=== PATIENT | male | born 1975 | race American Indian/Alaskan Native ===

== ENCOUNTER 2017-05-03 22:04 | Emergency (ER) | payer MEDICAID | END 2017-05-03 23:55 | disposition left against medical advice (07) | LOC: ED 22:04 | DX: K08.89 Other specified disorders of teeth and supporting structures (principal); Z53.21 Procedure and treatment not carried out due to patient leaving prior to being seen by health care provider ==

== ENCOUNTER 2018-09-14 17:06 | Emergency (ER) | payer MEDICAID ==
[2018-09-14 17:43] VITALS: BP 153/105
--- NOTE | 2018-09-14 20:01 | Emergency Department Report ---
ED General Adult HPI - General Chief complaint: Pain General Stated complaint: GOUT FLARE UP Time Seen by Provider: 09/14/18 19:24 Source: patient Mode of arrival: Ambulatory Limitations: No Limitations - History of Present Illness Initial comments: 43-year-old -Citizen Of [place] male with past medical history of recurrent gouty arthritis in his right arm/wrist and right foot and ankle region presents to the emergency department complaining of another flareup. Flareup started 1 day ago and has been progressively worsening since onset patient is Rath his home meds commences gadolinium, which is the cause of this flareup reports no trauma and denies any fever, chills, sweats. Pain is worse with palpation and ambulation -: Gradual Radiation: non-radiation Severity scale (0 -10): 10 Quality: aching Consistency: constant Improves with: none Associated Symptoms: denies: confusion, fever/chills, headaches, loss of appetite, nausea/vomiting, seizure, shortness of breath, syncope, weakness - Related Data Previous Rx's Medication Instructions Recorded Last Taken Type HYDROcodone/APAP 5-325 [[place] 1 each PO Q6HR PRN #15 tablet 08/04/16 Unknown Rx 5/325] Ibuprofen [Motrin] 600 mg PO Q8H PRN #25 tablet 08/04/16 Unknown Rx predniSONE [Deltasone] 40 mg PO QDAY #10 tab 08/04/16 Unknown Rx Colchicine 0.6 mg PO QDAY #30 capsule 07/13/18 Unknown Rx HYDROcodone/APAP 5-325 [[place] 1 - 2 each PO Q6HR PRN #14 tablet 07/13/18 Unknown Rx 5/325] Prednisone [predniSONE 10 mg 10 mg PO .TAPER #1 tab.ds.pk 07/13/18 Unknown Rx (6-Day Pack, 21 Tabs)] amLODIPine [Norvasc] 5 mg PO DAILY #90 tab 07/13/18 Unknown Rx Colchicine 0.6 mg PO Q2HR #10 capsule 09/14/18 Unknown Rx predniSONE [Deltasone] 50 mg PO QDAY #5 tab 09/14/18 Unknown Rx traMADol [Ultram] 50 mg PO Q6HR PRN #20 tablet 09/14/18 Unknown Rx Allergies Allergy/AdvReac Type Severity Reaction Status Date / Time No Known Allergies Allergy Unverified 08/03/16 22:28 ED Review of Systems ROS: Stated complaint: GOUT FLARE UP Other details as noted in HPI Constitutional: denies: chills, fever Eyes: denies: eye pain, eye discharge, vision change ENT: denies: ear pain, throat pain Respiratory: denies: cough, shortness of breath, wheezing Cardiovascular: denies: chest pain, palpitations Endocrine: no symptoms reported Gastrointestinal: denies: abdominal pain, nausea, diarrhea Genitourinary: denies: urgency, dysuria Musculoskeletal: joint swelling, arthralgia. denies: back pain Skin: denies: rash, lesions Neurological: denies: headache, weakness, paresthesias Psychiatric: denies: anxiety, depression Hematological/Lymphatic: denies: easy bleeding, easy bruising ED Past Medical Hx - Past Medical History Previous Medical History?: Yes Hx Hypertension: Yes Hx Sickle Cell Disease: Yes Additional medical history: Gout - Surgical History Past Surgical History?: No - Social History Smoking Status: Never Smoker Substance Use Type: None - Medications Home Medications: Home Medications Medication Instructions Recorded Confirmed Last Taken Type HYDROcodone/APAP 5-325 [[place] 1 each PO Q6HR PRN #15 tablet 08/04/16 Unknown Rx 5/325] Ibuprofen [Motrin] 600 mg PO Q8H PRN #25 tablet 08/04/16 Unknown Rx predniSONE [Deltasone] 40 mg PO QDAY #10 tab 08/04/16 Unknown Rx Colchicine 0.6 mg PO QDAY #30 capsule 07/13/18 Unknown Rx HYDROcodone/APAP 5-325 [[place] 1 - 2 each PO Q6HR PRN #14 tablet 07/13/18 Unknown Rx 5/325] Prednisone [predniSONE 10 mg 10 mg PO .TAPER #1 tab.ds.pk 07/13/18 Unknown Rx (6-Day Pack, 21 Tabs)] amLODIPine [Norvasc] 5 mg PO DAILY #90 tab 07/13/18 Unknown Rx Colchicine 0.6 mg PO Q2HR #10 capsule 09/14/18 Unknown Rx predniSONE [Deltasone] 50 mg PO QDAY #5 tab 09/14/18 Unknown Rx traMADol [Ultram] 50 mg PO Q6HR PRN #20 tablet 09/14/18 Unknown Rx ED Physical Exam - General Limitations: No Limitations General appearance: alert, in no apparent distress - Head Head exam: Present: atraumatic, normocephalic - Eye Eye exam: Present: normal appearance, PERRL, EOMI Pupils: Present: normal accommodation - ENT ENT exam: Present: normal exam, mucous membranes moist, TM's normal bilaterally - Neck Neck exam: Present: normal inspection, full ROM. Absent: lymphadenopathy - Respiratory Respiratory exam: Present: normal lung sounds bilaterally. Absent: respiratory distress - Cardiovascular Cardiovascular Exam: Present: regular rate, normal rhythm. Absent: systolic murmur, diastolic murmur, rubs, gallop - GI/Abdominal GI/Abdominal exam: Present: soft, normal bowel sounds - Rectal Rectal exam: Present: deferred - Extremities Exam Extremities exam: Present: normal inspection, full ROM, tenderness, normal capillary refill, joint swelling, other (no Homans sign. There is pain to the dorsum of the right wrist with some mild swelling. Pain with palpation and range of motion. Capillary refills are brisk. Right foot and ankle is tenderness to the lateral malleolus region. The joint is stable). Absent: pedal edema, calf tenderness - Back Exam Back exam: Present: normal inspection, full ROM, rash noted. Absent: CVA tenderness (R), CVA tenderness (L), muscle spasm, paraspinal tenderness, vertebral tenderness - Neurological Exam Neurological exam: Present: alert, oriented X3, CN II-XII intact, normal gait - Psychiatric Psychiatric exam: Present: normal affect, normal mood. Absent: anxious, flat affect, manic, suicidal ideation - Skin Skin exam: Present: warm, dry, intact, normal color. Absent: rash, erythema, urticaria, pallor, abrasion, ecchymosis ED Course Vital Signs 09/14/18 17:40 Temperature 99.5 F Pulse Rate 102 H Respiratory 18 Rate Blood Pressure 153/105 O2 Sat by Pulse 97 Oximetry Critical care attestation.: If time is entered above; I have spent that time in minutes in the direct care of this critically ill patient, excluding procedure time. ED Disposition Clinical Impression: Gout flare Disposition: - TO HOME OR SELFCARE Is pt being admited?: No Does the pt Need Aspirin: No Condition: Stable Instructions: Acute Gouty Arthritis (ED) Referrals: PRIMARY CARE, [Primary Care Provider] - 3-5 Days [facility] [Provider Group] - 3-5 Days
[2018-09-14] MEDS ORDERED: TORADOL IM STA (20:02)
[2018-09-14] MEDS ORDERED: SOLU-Medrol IM ONE (20:57)
== END 2018-09-14 21:07 | disposition home or self-care (01) ==
LOC: ED 17:06
DX: M10.9 Gout, unspecified (principal); I10 Essential (primary) hypertension; D57.1 Sickle-cell disease without crisis; Z79.899 Other long term (current) drug therapy
CPT/HCPCS: 96372; 99282; J1885; J2930

== ENCOUNTER 2021-12-22 20:30 | Emergency (ER) | payer MEDICAID ==
[2021-12-22 21:19] VITALS: BP 145/93
[2021-12-23] MEDS ORDERED: HYDROcodone/ACETAMINOPHEN 7.5-325MG TAB PO ONE (00:47)
[2021-12-23] MEDS ORDERED: methylPREDNISolone Sod Succinate 125 MG/2 ML INJ IM ONE (00:47)
[2021-12-23] MEDS ORDERED: KETOROLAC 30 MG/1 ML INJ IM ONE (00:47)
--- NOTE | 2021-12-23 01:03 | Emergency Department Report ---
ED Extremity Problem HPI - General Chief complaint: Extremity Injury, Upper Stated complaint: HAND SWELLING Source: patient Mode of arrival: Ambulatory Limitations: No Limitations - History of Present Illness Initial comments: Patient is a 46-year-old -[place] male with a history of hypertension and chronic gouty arthropathy who presents to the ED with complaint of acute exacerbation of his chronic gouty arthropathy characterized by swollen right hand and wrist for the last 1 week. Patient states that he has been taking medications that were previously prescribed for him for gout with no relief. Patient denies fall, traumatic injury, heavy lifting, nausea and vomiting, fever, chills, dizziness, syncope, neck pain, chest pain, shortness of breath or abdominal pain MD Complaint: extremity pain (right hand and wrist pain swelling), extremity swelling (right hand pain and swelling), joint swelling (right hand pain and swelling), joint paint (right hand pain) -: Sudden, week(s) (1) Location: right, upper extremity (hand pain and swelling), other (hand pain) History of Same: Yes (chronic gouty) -: Yes arthralgia (right hand pain and swelling) Radiation: distal Severity scale (0 -10): 10 Quality: aching Consistency: constant Improves with: nothing Worsens with: weight bearing, walking, exertion, palpation Associated Symptoms: denies other symptoms, arthralgias (Right hand pain and swelling). denies: chest pain, shortness of breath, fever, myalgias, rash, other - Related Data Previous Rx's Medication Instructions Recorded Last Taken Type HYDROcodone/APAP 5-325 [[place] 1 each PO Q6HR PRN #15 tablet 08/04/16 Unknown Rx 5/325] Ibuprofen [Motrin] 600 mg PO Q8H PRN #25 tablet 08/04/16 Unknown Rx Colchicine 0.6 mg PO QDAY #30 capsule 07/13/18 Unknown Rx HYDROcodone/APAP 5-325 [[place] 1 - 2 each PO Q6HR PRN #14 tablet 07/13/18 Unknown Rx 5/325] Prednisone [predniSONE 10 mg 10 mg PO .TAPER #1 tab.ds.pk 07/13/18 Unknown Rx (6-Day Pack, 21 Tabs)] amLODIPine 5 mg PO DAILY #90 tab 07/13/18 Unknown Rx Colchicine 0.6 mg PO Q2HR #10 capsule 09/14/18 Unknown Rx predniSONE [Deltasone] 50 mg PO QDAY #5 tab 09/14/18 Unknown Rx Colchicine 0.6 mg PO DAILY #30 tab 12/23/21 Unknown Rx Indomethacin 50 mg PO Q8H #90 cap 12/23/21 Unknown Rx allopurinoL [Zyloprim] 100 mg PO QDAY #30 tablet 12/23/21 Unknown Rx predniSONE [Deltasone] 60 mg PO QDAY #18 tab 12/23/21 Unknown Rx traMADoL [Ultram 50 MG tab] 50 mg PO Q6HR PRN #12 tablet 12/23/21 Unknown Rx Allergies Allergy/AdvReac Type Severity Reaction Status Date / Time No Known Allergies Allergy Unverified 08/03/16 22:28 ED Review of Systems ROS: Stated complaint: HAND SWELLING Other details as noted in HPI Constitutional: denies: chills, fever Eyes: denies: eye pain, eye discharge, vision change ENT: denies: ear pain, throat pain Respiratory: denies: cough, shortness of breath, wheezing Cardiovascular: denies: chest pain, palpitations Endocrine: no symptoms reported Gastrointestinal: denies: abdominal pain, nausea, diarrhea Genitourinary: denies: urgency, dysuria Musculoskeletal: joint swelling (Right hand pain and swelling), arthralgia (Right hand pain and swelling). denies: back pain Skin: denies: rash, lesions Neurological: denies: headache, weakness, paresthesias Psychiatric: denies: anxiety, depression Hematological/Lymphatic: denies: easy bleeding, easy bruising ED Past Medical Hx - Past Medical History Hx Hypertension: Yes Additional medical history: Gout - Social History Smoking Status: Never Smoker Substance Use Type: None - Medications Home Medications: Home Medications Medication Instructions Recorded Confirmed Last Taken Type HYDROcodone/APAP 5-325 [[place] 1 each PO Q6HR PRN #15 tablet 08/04/16 Unknown Rx 5/325] Ibuprofen [Motrin] 600 mg PO Q8H PRN #25 tablet 08/04/16 Unknown Rx Colchicine 0.6 mg PO QDAY #30 capsule 07/13/18 Unknown Rx HYDROcodone/APAP 5-325 [[place] 1 - 2 each PO Q6HR PRN #14 tablet 07/13/18 Unknown Rx 5/325] Prednisone [predniSONE 10 mg 10 mg PO .TAPER #1 tab.ds.pk 07/13/18 Unknown Rx (6-Day Pack, 21 Tabs)] amLODIPine 5 mg PO DAILY #90 tab 07/13/18 Unknown Rx Colchicine 0.6 mg PO Q2HR #10 capsule 09/14/18 Unknown Rx predniSONE [Deltasone] 50 mg PO QDAY #5 tab 09/14/18 Unknown Rx Colchicine 0.6 mg PO DAILY #30 tab 12/23/21 Unknown Rx Indomethacin 50 mg PO Q8H #90 cap 12/23/21 Unknown Rx allopurinoL [Zyloprim] 100 mg PO QDAY #30 tablet 12/23/21 Unknown Rx predniSONE [Deltasone] 60 mg PO QDAY #18 tab 12/23/21 Unknown Rx traMADoL [Ultram 50 MG tab] 50 mg PO Q6HR PRN #12 tablet 12/23/21 Unknown Rx ED Physical Exam - General Limitations: No Limitations General appearance: alert, in no apparent distress - Head Head exam: Present: atraumatic, normocephalic, normal inspection - Eye Eye exam: Present: normal appearance, PERRL, EOMI Pupils: Present: normal accommodation - ENT ENT exam: Present: normal exam, normal orophraynx, mucous membranes moist, TM's normal bilaterally, normal external ear exam - Neck Neck exam: Present: normal inspection, full ROM. Absent: tenderness - Respiratory Respiratory exam: Present: normal lung sounds bilaterally. Absent: respiratory distress, wheezes, rales, rhonchi, stridor, chest wall tenderness, accessory muscle use, decreased breath sounds, prolonged expiratory - Cardiovascular Cardiovascular Exam: Present: regular rate, normal rhythm, normal heart sounds. Absent: systolic murmur, diastolic murmur, rubs, gallop - GI/Abdominal GI/Abdominal exam: Present: soft, normal bowel sounds. Absent: tenderness, guarding, hyperactive bowel sounds, hypoactive bowel sounds, organomegaly, bruit - Extremities Exam Extremities exam: Present: normal inspection, full ROM, tenderness (Palpable right hand and wrist tenderness with swelling), normal capillary refill, joint swelling. Absent: pedal edema, calf tenderness - Back Exam Back exam: Present: normal inspection, full ROM. Absent: tenderness, CVA tenderness (R), CVA tenderness (L), muscle spasm, paraspinal tenderness, vertebral tenderness - Neurological Exam Neurological exam: Present: alert, oriented X3, CN II-XII intact, normal gait, reflexes normal - Psychiatric Psychiatric exam: Present: normal affect, normal mood - Skin Skin exam: Present: warm, dry, intact, normal color. Absent: rash ED Course Vital Signs 12/22/21 21:17 Temperature 98.3 F Pulse Rate 77 Respiratory 16 Rate Blood Pressure 145/93 [Right] O2 Sat by Pulse 96 Oximetry ED Medical Decision Making - Medical Decision Making This is a 46-year-old -[place] male with a history of hypertension and chronic gouty arthropathy who presents to the ED with complaint of acute exacerbation of his chronic gouty arthropathy characterized by swollen right hand and wrist for the last 1 week. Patient states that he has been taking medications that were previously prescribed for him for gout with no relief. In the ED, patient is alert and oriented x3 and is not in any distress. Patient was treated in the ED for pain and discharged home on pain medications and steroid for gouty arthropathy. Patient was advised to follow-up with his primary care physician in 7 to 10 days for reevaluation or return to the ED immediately if symptoms get worse. Appropriate counseling also given patient on the diet required for gouty arthropathy. Patient verbalized understanding. - Differential Diagnosis Gouty arthropathy; osteoarthritis; muscle strain; muscle Critical care attestation.: If time is entered above; I have spent that time in minutes in the direct care of this critically ill patient, excluding procedure time. ED Disposition Clinical Impression: Acute gouty arthropathy, Pain in right hand Disposition: HOME / SELF CARE / HOMELESS Is pt being admited?: No Does the pt Need Aspirin: No Condition: Stable Instructions: Low-Purine Eating Plan, Osteoarthritis Additional Instructions: Take medication with food, drink plenty of fluids and follow-up with your primary care physician in 7 to 10 days for reevaluation. Return to the ED immediately if symptoms get worse. Prescriptions: Colchicine 0.6 mg PO DAILY #30 tab predniSONE [Deltasone] 60 mg PO QDAY #18 tab Indomethacin 50 mg PO Q8H #90 cap traMADoL [Ultram 50 MG tab] 50 mg PO Q6HR PRN #12 tablet PRN Reason: Pain allopurinoL [Zyloprim] 100 mg PO QDAY #30 tablet Referrals: [facility] [Provider Group] - 7-10 days Forms: Work/School Release Form(ED) Time of Disposition: 01:10 Print Language: OCCITAN
== END 2021-12-23 01:51 | disposition home or self-care (01) ==
LOC: ED 20:30
DX: M10.9 Gout, unspecified (principal); M79.641 Pain in right hand; I10 Essential (primary) hypertension; Z79.899 Other long term (current) drug therapy
CPT/HCPCS: 96372; 99282; J1885; J2930